=== PATIENT | female | born 1995 | race American Indian/Alaskan Native ===

== ENCOUNTER 2017-05-05 16:02 | Outpatient (CLI) | payer MEDICAID ==
[2017-05-05] MEDS ORDERED: LACTATED RINGERS 500 ML IV ONE (16:21)
[2017-05-05 16:40] VITALS: BP 109/61
[2017-05-05 17:13] LABS: Bacteria,Urine 1+ /HPF (Negative); Bilirubin,Urine NEG (Negative); Blood,Urine SM (Negative); Ketones,Urine NEG (Negative); Leukocyte Esterase,Urine NEG (Negative); Nitrite,Urine NEG (Negative); Protein,Urine <15 mg/dL mg/dL (Negative); Urobilinogen,Urine < 2.0 mg/dL (<2.0)
[2017-05-05] MEDS ORDERED: ROCEPHIN/NS 1 GM/50 ML 1 GM/50 ML BAG IV ONE (17:47)
[2017-05-05] MEDS ORDERED: cefTRIAXone 1 GM in NACL 0.9% 20 ML IV ONE (18:00)
== END 2017-05-05 18:45 | disposition home or self-care (01) ==
LOC: TRG 16:02
PROVIDERS: ATTEND Obstetrics & Gynecology
DX: O47.03 False labor before 37 completed weeks of gestation, third trimester (principal); Z3A.28 28 weeks gestation of pregnancy
CPT/HCPCS: 59025; 81001; 87086; 96360; 96365; J0696; J7120

== ENCOUNTER 2017-07-08 13:31 | Inpatient (IN) | payer MEDICAID ==
[2017-07-08] MEDS ORDERED: NUBAIN IV PRN (18:03)
[2017-07-08] MEDS ORDERED: XYLOCAINE 2% INFILTRATI ONE (18:03)
[2017-07-08] MEDS ORDERED: MINERAL OIL PO PRN (18:03)
[2017-07-08] MEDS ORDERED: BRETHINE SUB-Q PRN (18:03)
[2017-07-08] MEDS ORDERED: BRETHINE IVP PRN (18:03)
[2017-07-08] MEDS ORDERED: ePHEDrine SULFATE IV PRN (18:03)
[2017-07-08] MEDS ORDERED: SUBLIMAZE IV PRN (18:03)
[2017-07-08] MEDS ORDERED: STADOL IV PRN (18:03)
[2017-07-08 18:50] LABS: Hematocrit 36.2 % (30.3-42.9); Hemoglobin 12.2 gm/dl (10.1-14.3); Mean Corpuscular HGB Conc 34 % (30-34); Mean Corpuscular Hemoglobin 30 pg (28-32); Mean Corpuscular Volume 90 fl (79-97); Platelet Count 204 K/mm3 (140-440); Red Blood Count 4.01 M/mm3 (3.65-5.03); Red Cell Distribution Width 14.4 % (13.2-15.2)
[2017-07-08] MEDS ORDERED: LACTATED RINGERS 1,000 ML IV SCH (19:00)
[2017-07-08] MEDS ORDERED: PITOCin/NS 30 UNIT/500ML 30 UNITS/500 ML BAG IV SCH ×2 (19:00)
[2017-07-08] MEDS ORDERED: PITOCin/NS 20 UNIT/1000ML DRIP 20 UNITS/1,000 ML BAG IV SCH (19:00)
[2017-07-09] MEDS ORDERED: NARCAN 2 MG/2 ML IV PRN (02:58)
[2017-07-09] MEDS ORDERED: ePHEDrine SULFATE IV PRN (02:58)
[2017-07-09] MEDS ORDERED: fentaNYL-BUPIV 2 MCG/ML-0.125% 200 MCG/100 ML BAG EPIDURAL SCH (03:00)
--- NOTE | 2017-07-09 03:24 | Anesthesia Consultation ---
Anesthesia Consult and Med Hx Date of service: 07/09/17 - Airway Anesthetic Teeth Evaluation: Good ROM Head & Neck: Adequate Mental/Hyoid Distance: Adequate Mallampati Class: Class I Intubation Access Assessment: Good - Pulmonary Exam CTA: Yes - Cardiac Exam Cardiac Exam: RRR - Pre-Operative Health Status ASA Pre-Surgery Classification: ASA1 Proposed Anesthetic Plan: Epidural - Pulmonary Hx Asthma: No COPD: No Hx Pneumonia: No - Cardiovascular System Hx Hypertension: No - Central Nervous System Hx Seizures: No Hx Psychiatric Problems: No - Endocrine Hx Renal Disease: No Hx End Stage Renal Disease: No Hx Hypothyroidism: No Hx Hyperthyroidism: No - Hematic Hx Anemia: No Hx Sickle Cell Disease: No - Other Systems Hx Alcohol Use: No
--- NOTE | 2017-07-09 05:58 | History and Physical Report ---
History of Present Illness Date of examination: 07/09/17 Date of admission: 07/08/17 21:05 Chief complaint: 21 uo LMP EDC 07/28/17 @ 37.2, presented to triage with reported SROM this afternoon. Clear fluid, denies vaginal bleeding or decreased FM. First trimester entry into care at 9 weeks. course complicated by trichomonas with treatment and negative TIERNEY 12/28/17. 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 Experienced vaginal bleeding with inflammed cervix and treated with flagyl, azithromycin, and rocephin. U/S @ 36 weeks for S<D EFW 6-4oz, She is GBS negative. 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 Social history: no significant social history - Obstetrical History Expected Date of Delivery: 07/28/17 Actual Gestation: 37 Week(s) 2 Day(s) : 2 Para: 0 Number of Living Children: 0 Medications and Allergies Allergies Allergy/AdvReac Type Severity Reaction Status Date / Time No Known Allergies Allergy Verified 11/02/14 10:10 Home Medications Medication Instructions Recorded Confirmed Last Taken Type No Known Home Medications [No 05/05/17 05/05/17 Unknown History Reported Home Medications] Active Meds: Active Medications Butorphanol Tartrate (Stadol) 2 mg IV Q2H PRN PRN Reason: Pain , Severe (7-10) Last Admin: 07/09/17 01:55 Dose: 2 mg Ephedrine Sulfate (Ephedrine Sulfate) 10 mg IV Q2M PRN PRN Reason: Hypotension Fentanyl (Sublimaze) 100 mcg IV Q2H PRN PRN Reason: Labor Pain Last Admin: 07/08/17 23:41 Dose: 100 mcg Lactated Ringer's (Lactated Ringers) 1,000 mls @ 125 mls/hr IV DIRECT SILVA Last Admin: 07/08/17 23:41 Dose: 125 mls/hr Oxytocin/Sodium Chloride (Pitocin/Ns 20 Unit/1000ml Drip) 20 units in 1,000 mls @ 125 mls/hr IV DIRECT SILVA Oxytocin/Sodium Chloride (Pitocin/Ns 30 Unit/500ml) 30 units in 500 mls @ 1 mls /hr IV TITR SILVA; 1 MILLIUNITS/MIN PRN Reason: Protocol Oxytocin/Sodium Chloride (Pitocin/Ns 30 Unit/500ml) 30 units in 500 mls @ 4 mls /hr IV TITR SILVA PRN Reason: Protocol Last Admin: 07/08/17 23:51 Dose: 4 ml/hr, 4 mls/hr Fentanyl/Bupivacaine/Sodium Chlor (Fentanyl-Bupiv 2 Mcg/Ml-0.125%) 200 mcg in 100 mls @ 12 mls/hr EPIDURAL TITR SILVA PRN Reason: Protocol Last Admin: 07/09/17 03:54 Dose: 12 mls/hr Mineral Oil (Mineral Oil) 30 ml PO QHS PRN PRN Reason: Constipation Nalbuphine HCl (Nubain) 10 mg IV Q2H PRN PRN Reason: Pain, Moderate (4-6) Naloxone HCl (Narcan 2 Mg/2 Ml) 0.2 mg IV Q5M PRN PRN Reason: Respiratory sedation Terbutaline Sulfate (Brethine) 0.25 mg SUB-Q ONCE PRN PRN Reason: Hyperstimulation/Hypertonicity Terbutaline Sulfate (Brethine) 0.25 mg IVP ONCE PRN PRN Reason: Hyperstimulation/Hypertonicity Review of Systems All systems: negative - Vital Signs Vital signs: Vital Signs Pulse Pulse Ox 87 100 07/08/17 14:32 07/08/17 14:32 Temp Pulse Resp BP Pulse Ox 97.9 F 71 18 127/82 96 07/08/17 22:15 07/09/17 05:48 07/08/17 23:41 07/09/17 05:28 07/09/17 05:48 - Physical Exam Breasts: Positive: deferred - Obstetrical FHR: category 1 Uterine Contraction Monitor Mode: External Cervical Dilatation: 10 Cervical Effacement Percentage: 100 Uterine Contraction Pattern: Regular Uterine Tone Measurement Phase: Resting Uterine Contraction Intensity: Moderate Results Result Diagrams: 07/08/17 18:25 All other labs normal. Assessment and Plan A: IUP at term Second Stage Labor P: Active nancy't Anticipate
--- NOTE | 2017-07-09 06:02 | Procedure Note ---
OB Delivery Note - Delivery Date of Delivery: 07/09/17 (6-2oz male) Surgeon: VERONICA ACUNA Estimated blood loss: 100cc - Vaginal Intrapartum events: none, PROM->1hr before delivery Delivery induction: oxytocin Delivery monitor: external FHT, external uterine Route of delivery: Delivery placenta: spontaneous Delivery cord: 3 umbilical vessels Episiotomy: none Delivery laceration: none Anesthesia: epidural - A at 1 minute: 8 at 5 minutes: 9 Infant Gender: Male (placed skin to skin. spont placenta. scant lochia, Pitocin infusing. No lacerations.)
[2017-07-09] MEDS ORDERED: MILK OF MAGNESIA PO PRN (09:51)
[2017-07-09] MEDS ORDERED: BENADRYL PO PRN (09:51)
[2017-07-09] MEDS ORDERED: PHENERGAN PO PRN (09:51)
[2017-07-09] MEDS ORDERED: SODIUM CHLORIDE FLUSH SYRINGE 10 ML IV SCH (09:51)
[2017-07-09] MEDS ORDERED: PHENERGAN PR PRN (09:51)
[2017-07-09] MEDS ORDERED: TYLENOL PO PRN (09:51)
[2017-07-09] MEDS ORDERED: TUCKS PAD TP PRN (09:51)
[2017-07-09] MEDS ORDERED: ZOFRAN IV PRN (09:51)
[2017-07-09] MEDS ORDERED: DULCOLAX PR PRN (09:51)
[2017-07-09] MEDS: NORCO 5/325 PO PRN ×2 (09:55→16:45)
[2017-07-09] MEDS ORDERED: LANSINOH TP PRN (10:16)
[2017-07-09] MEDS: PRENATAL VITAMIN PO SCH (16:45)
[2017-07-09] MEDS: COLACE PO SCH ×2 (16:45→23:49)
[2017-07-09] MEDS: MOTRIN PO SCH ×2 (18:52→23:49)
[2017-07-09 18:55] LABS: Hematocrit 35.7 % (30.3-42.9); Hemoglobin 11.9 gm/dl (10.1-14.3)
[2017-07-10] MEDS: MOTRIN PO SCH ×2 (06:28→18:55)
[2017-07-10] MEDS ORDERED: BOOSTRIX IM ONE (06:39)
[2017-07-10] MEDS ORDERED: M-M-R II VACCINE SUB-Q ONE (06:39)
--- NOTE | 2017-07-10 12:02 | Progress Note ---
Assessment and Plan PPD 1 s/p . Patient doing well. Will plan for discharge on tomorrow as infant needs to stay for phototherapy. Subjective - Subjective Date of service: 07/10/17 Principal diagnosis: Term delivered Patient reports: appetite normal, voiding normally, pain well controlled, ambulating normally [place]: doing well (with bili lights) Objective - Vital Signs Latest vital signs: Vital Signs Temp Pulse Resp BP BP Pulse Ox 07/10/17 07:40 97.4 F L 69 20 124/84 98 07/10/17 01:17 98.4 F 62 18 126/71 07/09/17 18:00 98.1 F 74 18 113/84 99 07/09/17 13:00 98.4 F 80 18 107/72 98 Intake and Output 07/09/17 07/10/17 07/10/17 22:59 06:59 14:59 Intake Total 480 720 Balance 480 720 Intake: Oral 480 Intake, Free Water 720 Other: Total, Intake Amount 480 # Voids Void 2 - Exam Cardiovascular: Present: Regular rate, Normal S1, Normal S2 Lungs: Present: Clear to auscultation, Normal air movement Abdomen: Present: normal appearance, soft, normal bowel sounds Vulva: both: normal Uterus: Present: normal, firm, fundal height below umbilicus Extremities: Present: normal Deep Tendon Reflex Grade: Normal +2
--- NOTE | 2017-07-10 12:03 | Discharge Summary ---
Providers - Providers Date of Admission: 07/08/17 21:05 Date of discharge: 07/11/17 Attending physician: AFUA BRAR Primary care physician: DIMA BURNS MD Hospitalization Reason for admission: active labor Delivery: Episiotomy: none Discharge diagnosis: IUP at term delivered baby: male Hospital course: Unremarkable Condition at discharge: Good Disposition: DC-01 TO HOME OR SELFCARE Plan - Discharge Medications Prescriptions: HYDROcodone/ACETAMINOPHEN [[place] 5-325 Tablet] 1 each PO Q6H PRN #20 tablet PRN Reason: Pain Ibuprofen [Motrin] 800 mg PO Q8HR PRN #30 tablet PRN Reason: Pain - Provider Discharge Summary Activity: routine, no sex for 6 weeks, no heavy lifting 4 weeks, no strenuous exercise Diet: routine Instructions: routine Additional instructions: [] Smoking cessation referral if applicable(refer to patient education folder for contact #) [] Refer to [facility]'s [facility] Booklet Call your doctor immediately for: * Fever > 100.5 * Heavy vaginal bleeding ( >1 pad per hour) * Severe persistent headache * Shortness of breath * Reddened, hot, painful area to leg or breast * Drainage or odor from incision. * Keep incision clean and dry at all times and follow doctor's instructions regarding bathing/showering - Follow up plan Follow up: DIMA BURNS MD [Primary Care Provider] - 6 Weeks
[2017-07-10] MEDS: COLACE PO SCH (18:56)
[2017-07-11] MEDS: MOTRIN PO SCH ×3 (00:27→13:43)
[2017-07-11] MEDS ORDERED: BOOSTRIX IM ONE (10:00)
[2017-07-11] MEDS: COLACE PO SCH (10:18)
[2017-07-11] MEDS: PRENATAL VITAMIN PO SCH (10:18)
[2017-07-11 17:59] VITALS: BP 141/87
== END 2017-07-11 19:00 | disposition home or self-care (01) | DRG 774 ==
LOC: TRG 13:31 → LD 21:05 → OB 07-09 09:36
PROVIDERS: ADMIT Obstetrics & Gynecology; ATTEND Obstetrics & Gynecology
PROC: 3E0234Z Introduction of Serum, Toxoid and Vaccine into Muscle, Percutaneous Approach (ICD-10-PCS; principal; 2017-07-09)
PROC: 10E0XZZ Delivery of Products of Conception, External Approach (ICD-10-PCS; 2017-07-09)
PROC: 3E033VJ Introduction of Other Hormone into Peripheral Vein, Percutaneous Approach (ICD-10-PCS; 2017-07-09)
PROC: 3E0R3BZ Introduction of Anesthetic Agent into Spinal Canal, Percutaneous Approach (ICD-10-PCS; 2017-07-09)
PROC: 00HU33Z Insertion of Infusion Device into Spinal Canal, Percutaneous Approach (ICD-10-PCS; 2017-07-09)
DX: O42.02 Full-term premature rupture of membranes, onset of labor within 24 hours of rupture (principal); O98.32 Other infections with a predominantly sexual mode of transmission complicating childbirth; Z3A.37 37 weeks gestation of pregnancy; Z37.0 Single live birth; Z23 Encounter for immunization; A59.9 Trichomoniasis, unspecified; O98.52 Other viral diseases complicating childbirth; B00.9 Herpesviral infection, unspecified
CPT/HCPCS: 36415; 85014; 85018; 85027; 86592; 86850; 86900; 86901; 90471; 90715; 99211; G0463; J0595; J2300; J2590; J3010; J7120

== ENCOUNTER 2018-06-26 12:45 | Observation (INO) | payer MEDICAID, OTHER ==
--- NOTE | 2018-06-26 13:47 | Emergency Department Report ---
<LEISA COHN - Last Filed: 06/26/18 19:07> ED Female HPI - General Chief complaint: Vaginal Bleeding Stated complaint: (L) SIDE PAIN Source: patient Mode of arrival: Ambulatory Limitations: No Limitations - History of Present Illness Initial comments: Sustained 22-year-old -[place] female who presents with left lower quadrant pain radiating to left flank and vaginal bleeding for 1 month. Patient reports bleeding started 05/29/2016. Initially started with heavy bleeding and passage of clots which is now decreased to spotting. She also complains of vaginal discharge with odor. A1. She denies fever, back pain, nausea or vomiting, chest pain, shortness of breath. MD Complaint: vaginal bleeding, vaginal discharge, pelvic pain Onset/Timin -: month(s) Location: suprapubic Radiation: non-radiating Severity: severe Severity scale (0 -10): 10 Quality: sharp Consistency: constant Improves with: none Worsens with: none Are you Now?: No Last Menstrual Period: 06/14/18 EDC: 03/21/19 Associated Symptoms: vaginal discharge, vaginal bleeding, abdominal pain. denies: nausea/vomiting, fever/chills, headaches, loss of appetite, dysuria, hematuria, rash, seizure, shortness of breath, syncope, weakness - Related Data Sexually active: Yes : 2 Para: 1 A: 1 (miscarriage) Previous Rx's Medication Instructions Recorded Last Taken Type HYDROcodone/ACETAMINOPHEN [[place] 1 each PO Q6H PRN #20 tablet 07/09/17 Unknown Rx 5-325 Tablet] Ibuprofen [Motrin] 800 mg PO Q8HR PRN #30 tablet 07/09/17 Unknown Rx Allergies Allergy/AdvReac Type Severity Reaction Status Date / Time No Known Allergies Allergy Verified 11/02/14 10:10 ED Review of Systems Constitutional: denies: chills, fever Respiratory: denies: cough, shortness of breath, wheezing Cardiovascular: denies: chest pain, palpitations Gastrointestinal: abdominal pain, nausea. denies: vomiting, diarrhea Genitourinary: abnormal menses. denies: urgency, dysuria, discharge Musculoskeletal: denies: back pain, joint swelling, arthralgia Neurological: denies: headache, weakness, paresthesias Psychiatric: denies: anxiety, depression ED Past Medical Hx - Past Medical History Hx Hypertension: No Hx Congestive Heart Failure: No Hx Diabetes: No Hx Deep Vein Thrombosis: No Hx Renal Disease: No Hx Sickle Cell Disease: No Hx Seizures: No Hx Asthma: No Hx COPD: No Hx HIV: No - Social History Smoking Status: Never Smoker Substance Use Type: None - Medications Home Medications: Home Medications Medication Instructions Recorded Confirmed Last Taken Type HYDROcodone/ACETAMINOPHEN [[place] 1 each PO Q6H PRN #20 tablet 07/09/17 Unknown Rx 5-325 Tablet] Ibuprofen [Motrin] 800 mg PO Q8HR PRN #30 tablet 07/09/17 Unknown Rx ED Physical Exam - General Limitations: No Limitations General appearance: alert, in no apparent distress - Respiratory Respiratory exam: Present: normal lung sounds bilaterally. Absent: respiratory distress - Cardiovascular Cardiovascular Exam: Present: regular rate, normal rhythm. Absent: systolic murmur, diastolic murmur, rubs, gallop - GI/Abdominal GI/Abdominal exam: Present: soft, normal bowel sounds. Absent: distended, tenderness, guarding, rebound, rigid, organomegaly, mass - External exam: Present: normal external exam. Absent: erythema, swelling, lesions, lacerations, ecchymosis, bleeding Speculum exam: Present: erythema, vaginal discharge, vaginal bleeding. Absent: cervical discharge, foreign body, tissue, laceration Bi-manual exam: Present: cervical motion tendernes, adnexal tenderness (left), uterine tenderness. Absent: adnexal mass - Back Exam Back exam: Absent: CVA tenderness (R), CVA tenderness (L) - Neurological Exam Neurological exam: Present: alert, oriented X3 - Psychiatric Psychiatric exam: Present: normal affect, normal mood - Skin Skin exam: Present: warm, dry, intact, normal color. Absent: rash ED Medical Decision Making - Lab Data Result diagrams: 06/26/18 14:25 - Medical Decision Making Patient was examined by me. Vitals are normal and patient is in no acute distress. Obtained the labs. Urine test positive. Obtained hCG and OB ultrasound. IV site. Given normal saline 1 L bolus, morphine 4 mg IV 2, Zofran 4 mg IV. Ultrasound pending. Rule out ectopic . Chart sign to [facility] ED Disposition Clinical Impression: Pelvic pain, Spontaneous miscarriage Disposition: OP ADMIT IP TO THIS HOSP Condition: Stable Referrals: ANNALISA WATKINS [Primary Care Provider] - 3-5 Days <INA OKEEFE - Last Filed: 06/26/18 19:57> ED Review of Systems ROS: Stated complaint: (L) SIDE PAIN Other details as noted in HPI ED Course Vital Signs 06/26/18 06/26/18 12:54 19:49 Temperature 98.3 F Pulse Rate 98 H Respiratory 18 15 Rate Blood Pressure 128/75 O2 Sat by Pulse 98 Oximetry ED Medical Decision Making - Lab Data Result diagrams: 06/26/18 14:25 - Medical Decision Making Patient was signed out to me by Leisa Cohn for a pending US report. Patient was consulted with Dr. Bullock and agree to the ED plan of care and admission for ecoptic rule out. At time of admission, the patient does not seem toxic or ill in appearance. No acute signs of distress noted. Patient agrees to admission treatment plan of care. No further questions noted by the patient. Critical care attestation.: If time is entered above; I have spent that time in minutes in the direct care of this critically ill patient, excluding procedure time. ED Disposition Is pt being admited?: Yes
[2018-06-26 14:41] LABS: Hematocrit 33.3 % (30.3-42.9); Mean Corpuscular HGB Conc 33 % (30-34); Mean Corpuscular Volume 87 fl (79-97); Platelet Count 387 K/mm3 (140-440); Red Blood Count 3.82 M/mm3 (3.65-5.03); Red Cell Distribution Width 13.7 % (13.2-15.2)
[2018-06-26] MEDS ORDERED: MORPHINE IV ONE ×2 (14:55→17:46)
[2018-06-26] MEDS ORDERED: ZOFRAN IV ONE (14:55)
--- NOTE | 2018-06-26 19:01 | Ultrasound Report ---
FINAL REPORT EXAM: US OB TRANSVAGINAL HISTORY: confirmed , vaginal bleeding, r/o ectopic TECHNIQUE: Ultrasound obstetrical transvaginal PRIORS: None. FINDINGS: Uterus measures 9.1 x 4.5 x 6.4 centimeters. No evidence for endometrial thickening 0.25 centimeters No gestational sac or structures identified within the uterus Right ovary is 5.3 x 3.3 x 4.1 centimeters. No abnormal right ovarian mass identified Left ovary is 4.6 x 1.9 x 2.6 centimeters. In the region of the left adnexae there is echogenic massl lexi focus measuring approximately 3.5 by 3.0 x 5.0 centimeters. No tubal ring or sac-like structures are identified. No free fluid identified IMPRESSION: No intrauterine gestation identified Solid-appearing focus noted at the left adnexa. Nonspecific appearance. Ectopic cannot be e xcluded. Could reflect pedunculated fibroid or other mass. Suggest continued followup in correlation with beta HCGs
--- NOTE | 2018-06-26 19:05 | Ultrasound Report ---
FINAL REPORT EXAM: US OB <= 14 WEEKS FETUS HISTORY: confirmed , vaginal bleeding, r/o ectopic TECHNIQUE: Ultrasound obstetrical transabdominal PRIORS: None. FINDINGS: Uterus measures 9.1 x 4.5 x 6.4 centimeters. No evidence for endometrial thickening 0.25 centimeters No gestational sac or structures identified within the uterus Right ovary is 5.3 x 3.3 x 4.1 centimeters. No abnormal right ovarian mass identified Left ovary is 4.6 x 1.9 x 2.6 centimeters. In the region of the left adnexae there is echogenic massl lexi focus measuring approximately 3.5 by 3.0 x 5.0 centimeters. No tubal ring or sac-like structures are identified. No free fluid identified IMPRESSION: No intrauterine gestation identified Solid-appearing focus noted at the left adnexa. Nonspecific appearance. Ectopic cannot be e xcluded. Could reflect pedunculated fibroid or other mass.
[2018-06-26 20:26] LABS: Alanine Aminotransferase 7 units/L (7-56); BUN/Creatinine Ratio 7; Blood Urea Nitrogen 5 mg/dL (7-17); Calcium 8.9 mg/dL (8.4-10.2); Hemolysis Index 2
[2018-06-26 20:31] LABS: INR 1.05 (0.87-1.13); Partial Thromboplastin Time 23.9 Sec. (24.2-36.6)
[2018-06-26] MEDS ORDERED: ZOFRAN IV PRN (23:05)
[2018-06-26] MEDS ORDERED: TYLENOL PO PRN (23:05)
[2018-06-26] MEDS ORDERED: NORCO 5/325 PO PRN (23:05)
--- NOTE | 2018-06-26 23:13 | History and Physical Report ---
History of Present Illness Date of examination: 06/27/18 Date of admission: 06/26/18 19:46 Chief complaint: vaginal bleeding/ abdominal pain. History of present illness: Pt presents to ER c/o worsening left lower quad pain. She states she had spotting that started at the end of April. It is unclear if this was her expected period or not as pt is poor historian. This spotting progressed to passing clots and heavier bleeding 06/03/18 for about a week to currently having spotting. Pt states she was having constipation and pain associated with it but states today pain got worse and this is what brought her to the ER.States she as not aware she was . Pt states she was going to [facility] and delivered her baby in 07/2017 but has not been seen in the office since Dec 2017. 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 Sono tonight shows a 3cm x5cm nonspecific left adnexal mass that included ddx of ectopic and pedunculated fibroid or "other mass." I have d/w that she also could be in the resolution phase of either an ectopic or SAB given the uterine cavity showed no thickness and she had heavy bleeding. However, I also d/w that she could have an eary normal given her quant is <2000 and a GS would not be seen. I d/w the following treatment options 1)observation with following quants 2)dx laproscopy with removal of mass 3)MTX and close observation. Pt desires MTX. I stressed that it has not been clearly proven to be an ectopic and giving the medication could disrupt a normal early . Pt states she would like the injection at this time if Ectopic is still a possibility. Risk, benefits, and alternatives were d/w pt and questions were addressed and answered. 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 Family/Genetic History: none Social history: no significant social history - Obstetrical History : 3 Para: 1 Spontaneous Abortions: 1 Number of Living Children: 1 Medications and Allergies Allergies Allergy/AdvReac Type Severity Reaction Status Date / Time No Known Allergies Allergy Verified 11/02/14 10:10 Home Medications Medication Instructions Recorded Confirmed Last Taken Type No Known Home Medications [No 06/26/18 06/26/18 Unknown History Reported Home Medications] Active Meds: Active Medications Acetaminophen (Tylenol) 650 mg PO Q4H PRN PRN Reason: Pain MILD(1-3)/Fever >100.5/[place]ULL[place] Acetaminophen/Hydrocodone Bitart ([place] 5/325) 2 each PO Q6H PRN PRN Reason: Pain, Moderate (4-6) Methotrexate (Methotrexate) 92 mg 50 mg/m2 (92 mg) IM ONCE ONE Stop: 06/26/18 23:09 Ondansetron HCl (Zofran) 4 mg IV Q8H PRN PRN Reason: Nausea And Vomiting Sodium Chloride (Sodium Chloride Flush Syringe 10 Ml) 10 ml IV BID [facility] Review of Systems All systems: negative - Vital Signs Vital signs: Vital Signs Temp Pulse Resp BP Pulse Ox 98.3 F 98 H 18 128/75 98 06/26/18 12:54 06/26/18 12:54 06/26/18 12:54 06/26/18 12:54 06/26/18 12:54 Temp Pulse Resp BP Pulse Ox 98.1 F 67 16 105/61 100 06/26/18 21:20 06/26/18 21:20 06/26/18 21:20 06/26/18 21:20 06/26/18 21:20 - Physical Exam Cardiovascular: Normal S1, Normal S2 Lungs: Positive: Clear to auscultation Abdomen: Positive: normal appearance, soft. Negative: distention, tenderness, guarding Genitourinary (Female): Positive: other (deferred as pelvic was done by ER provider and pt declines at this time) Extremities: Positive: normal. Negative: tenderness, edema Deep Tendon Reflex Grade: Normal +2 Results Result Diagrams: 06/26/18 14:25 06/26/18 20:01 Abnormal lab results 06/26/18 06/26/18 06/26/18 Range/Units 15:02 20:01 20:01 APTT 23.9 L (24.2-36.6) Sec. BUN 5 L (7-17) mg/dL HCG, Quant 1780 H (0-4) mIU/mL All other labs normal. Assessment and Plan - Patient Problems (1) Adnexal mass Current Visit: Yes Status: Acute Plan to address problem: -fibroid vs ectopic -pt desires tx for ectopic -MTX orders given -all risk, benefits,and alternatives were d/w pt and questions were addressed and answered (2) Positive blood test Current Visit: Yes Status: Acute Plan to address problem: -fibroid vs ectopic -pt desires tx for ectopic -MTX orders given -all risk, benefits,and alternatives were d/w pt and questions were addressed a nd answered (3) Pelvic pain Current Visit: Yes Status: Acute Plan to address problem: -fibroid vs ectopic -pt desires tx for ectopic -MTX orders given -all risk, benefits,and alternatives were d/w pt and questions were addressed and answered
[2018-06-27 05:55] LABS: Basophils % (Auto) 0.2 % (0.0-1.8); Eosinophils # (Auto) 0.2 K/mm3 (0.0-0.4); Eosinophils % (Auto) 2.8 % (0.0-4.3); Hematocrit 32.1 % (30.3-42.9); Hemoglobin 10.7 gm/dl (10.1-14.3); Lymphocytes # (Auto) 2.1 K/mm3 (1.2-5.4); Lymphocytes % (Auto) 29.8 % (13.4-35.0); Mean Corpuscular HGB Conc 33 % (30-34); Mean Corpuscular Volume 87 fl (79-97); Monocytes # (Auto) 0.6 K/mm3 (0.0-0.8); Platelet Count 392 K/mm3 (140-440); Red Cell Distribution Width 13.8 % (13.2-15.2)
--- NOTE | 2018-06-27 09:15 | Discharge Summary ---
Providers - Providers Date of Admission: 06/26/18 19:46 Date of discharge: 06/27/18 Attending physician: SANDY GALARZA 06/26/18 20:02 Consult to Physician [CONS] Stat Comment: Consulting Provider: SANDY GALARZA Physician Instructions: Reason For Exam: pelvic pain r/o ectopic Primary care physician: ANNALISA WATKINS Hospitalization Reason for admission: ectopic Condition: Good Hospital course: Please see dictated H&P for details. Patient was admitted with a diagnosis of ectopic . Options were explained and patient chose to undergo treatment with methotrexate. Methotrexate therapy was given without any complications. Patient discharged with follow-up in 3 days. Patient desires to return to [facility] for follow-up Disposition: NE TO HOME OR SELFCARE Time spent for discharge: 20 min - Discharge Diagnoses (1) Ectopic Status: Acute Qualifiers: Location of ectopic : unspecified location Intrauterine status: without intrauterine Qualified Code(s): O00.90 - Unspecified ectopic without intrauterine Core Measure Documentation - Palliative Care Palliative Care/ Comfort Measures: Not Applicable - Core Measures Any of the following diagnoses?: none Exam - Constitutional Vitals: Temp Pulse Resp BP Pulse Ox 98.0 F 77 18 95/49 100 06/27/18 08:00 06/27/18 08:00 06/27/18 08:00 06/27/18 08:00 06/27/18 08:00 Plan Activity: no restrictions Additional Instructions: Patient struck to call for severe pain nausea vomiting and heavy bleeding. F/u with [facility] per patient's preference. Our office information was also given to the patient. Stressed to the patient wanted to follow up the results of ruptured fallopian tube and the rest of haven't significant internal bleeding. Patient understands and desires discharge Follow up with: ANNALISA WATKINS [Primary Care Provider] - 3-5 Days Prescriptions: RX: Ibuprofen [Motrin 800 MG tab] 800 mg PO Q6H PRN #30 tablet PRN Reason: Pain Acetaminophen/Codeine [Tylenol #3] 1 tab PO Q4HR PRN #10 tablet PRN Reason: Pain
[2018-06-27] MEDS ORDERED: SODIUM CHLORIDE FLUSH SYRINGE 10 ML IV SCH (10:00)
[2018-06-27 11:58] VITALS: BP 90/51
== END 2018-06-27 13:30 | disposition home or self-care (01) ==
LOC: ED 12:45 → OB 19:46
PROVIDERS: ADMIT Obstetrics & Gynecology; ATTEND Obstetrics & Gynecology
DX: O26.899 Other specified pregnancy related conditions, unspecified trimester (principal); O00.90 Unspecified ectopic pregnancy without intrauterine pregnancy; R10.2 Pelvic and perineal pain; Z3A.00 Weeks of gestation of pregnancy not specified
CPT/HCPCS: 36415; 76801; 76817; 80053; 84702; 84703; 85025; 85027; 85610; 85730; 86850; 86900; 86901; 87086; 87210; 87591; 96372; 96374; 96375; 96376; 99284; G0378; J2270; J2405; J9260

== ENCOUNTER 2019-04-19 20:27 | Emergency (ER) | payer SELFPAY ==
[2019-04-19] MEDS ORDERED: ONDANSETRON 4 MG ODT TAB ONE (21:16)
[2019-04-19 22:19] LABS: Basophils # (Auto) 0.1 K/mm3 (0.0-0.1); Hematocrit 33.9 % (30.3-42.9); Hemoglobin 11.5 gm/dl (10.1-14.3); Lymphocytes # (Auto) 1.2 K/mm3 (1.2-5.4); Lymphocytes % (Auto) 9.9 % (13.4-35.0); Mean Corpuscular HGB Conc 34 % (30-34); Mean Corpuscular Volume 80 fl (79-97); Monocytes # (Auto) 1.8 K/mm3 (0.0-0.8); Monocytes % (Auto) 15.5 % (0.0-7.3); Platelet Count 305 K/mm3 (140-440); Red Blood Count 4.22 M/mm3 (3.65-5.03); Red Cell Distribution Width 16.7 % (13.2-15.2)
[2019-04-19 22:29] LABS: Alanine Aminotransferase 13 units/L (7-56); Albumin 4.4 g/dL (3.9-5); BUN/Creatinine Ratio 9; Blood Urea Nitrogen 7 mg/dL (7-17); Calcium 9.2 mg/dL (8.4-10.2); Hemolysis Index 0
[2019-04-19 22:37] LABS: Bilirubin,Urine NEG (Negative); Blood,Urine MOD (Negative); Color,Urine Yellow (Yellow); Mucus,Urine FEW /HPF
[2019-04-19] MEDS ORDERED: ACETAMINOPHEN 500 MG TAB PO ONE (23:36)
[2019-04-19] MEDS ORDERED: SODIUM CHLORIDE 0.9% 1000 ML IV SOLN IV ONE (23:36)
[2019-04-19] MEDS ORDERED: cefTRIAXone/NS 1 GM/50 ML 1 GM/50 ML BAG IV ONE (23:37)
[2019-04-19] MEDS ORDERED: POTASSIUM CHLORIDE ER 20 MEQ TAB PO ONE (23:40)
--- NOTE | 2019-04-19 23:42 | Emergency Department Report ---
ED Abdominal Pain HPI - General Chief Complaint: Abdominal Pain Stated Complaint: NAUSEA/HOT FLASHES/CONSTIPATION/COLD SWEATS Time Seen by Provider: 04/19/19 23:20 Source: patient Mode of arrival: Ambulatory Limitations: No Limitations - History of Present Illness Initial Comments: 23-year-old female presents to ED with 5 day history of nausea, vomiting, abdominal pain. Patient reports pain is intermittent, located in left lower quadrant. Patient also reports associated constipation and lower back pain. She denies any dysuria, hematuria, urinary frequency, vaginal discharge. MD Complaint: abdominal pain -: days(s) (5) Location: LLQ Radiation: none Migration to: no migration Severity: moderate Quality: aching Consistency: intermittent Improves With: nothing Worsens With: nothing Associated Symptoms: nausea, vomiting, fever, constipation. denies: diarrhea, dysuria, hematuria - Related Data Previous Rx's Medication Instructions Recorded Last Taken Type Acetaminophen/Codeine [Tylenol #3] 1 tab PO Q4HR PRN #10 tablet 06/27/18 Unknown Rx Ibuprofen [Motrin 800 MG tab] 800 mg PO Q6H PRN #30 tablet 06/27/18 Unknown Rx Ciprofloxacin HCl [Ciprofloxacin 500 mg PO Q12HR 10 Days #20 tab 04/20/19 Unknown Rx TAB] Docusate Sodium [Colace] 100 mg PO BID #20 capsule 04/20/19 Unknown Rx Naproxen [Naprosyn] 500 mg PO BID #20 tablet 04/20/19 Unknown Rx Ondansetron [Zofran Odt] 4 mg PO Q8HR PRN #20 tab.rapdis 04/20/19 Unknown Rx traMADoL [Ultram] 50 mg PO Q6HR PRN #7 tablet 04/20/19 Unknown Rx Allergies Allergy/AdvReac Type Severity Reaction Status Date / Time No Known Allergies Allergy Verified 11/02/14 10:10 ED Review of Systems ROS: Stated complaint: NAUSEA/HOT FLASHES/CONSTIPATION/COLD SWEATS Other details as noted in HPI Comment: All other systems reviewed and negative Constitutional: fever ENT: denies: throat pain Respiratory: denies: cough Gastrointestinal: abdominal pain, nausea, vomiting, constipation Genitourinary: denies: dysuria, frequency, hematuria, discharge Musculoskeletal: back pain. denies: myalgia ED Past Medical Hx - Past Medical History Previous Medical History?: Yes Hx Hypertension: No Hx Congestive Heart Failure: No Hx Diabetes: No Hx Deep Vein Thrombosis: No Hx Renal Disease: No Hx Sickle Cell Disease: No Hx Seizures: No Hx Asthma: No Hx COPD: No Hx HIV: No Additional medical history: Ovarian cyst, Miscarriage 2015 at 16 weeks - Surgical History Past Surgical History?: No - Social History Smoking Status: Current Every Day Smoker Substance Use Type: None - Medications Home Medications: Home Medications Medication Instructions Recorded Confirmed Last Taken Type Acetaminophen/Codeine [Tylenol #3] 1 tab PO Q4HR PRN #10 tablet 06/27/18 Unknown Rx Ibuprofen [Motrin 800 MG tab] 800 mg PO Q6H PRN #30 tablet 06/27/18 Unknown Rx Ciprofloxacin HCl [Ciprofloxacin 500 mg PO Q12HR 10 Days #20 tab 04/20/19 Unknown Rx TAB] Docusate Sodium [Colace] 100 mg PO BID #20 capsule 04/20/19 Unknown Rx Naproxen [Naprosyn] 500 mg PO BID #20 tablet 04/20/19 Unknown Rx Ondansetron [Zofran Odt] 4 mg PO Q8HR PRN #20 tab.rapdis 04/20/19 Unknown Rx traMADoL [Ultram] 50 mg PO Q6HR PRN #7 tablet 04/20/19 Unknown Rx ED Physical Exam - General Limitations: No Limitations General appearance: alert, in no apparent distress - Head Head exam: Present: atraumatic, normocephalic - Eye Eye exam: Present: normal appearance - ENT ENT exam: Present: mucous membranes moist - Neck Neck exam: Present: normal inspection - Respiratory Respiratory exam: Present: normal lung sounds bilaterally. Absent: respiratory distress - Cardiovascular Cardiovascular Exam: Present: normal rhythm, tachycardia - GI/Abdominal GI/Abdominal exam: Present: soft, tenderness (mild LLQ). Absent: distended, guarding, rebound - Extremities Exam Extremities exam: Present: normal inspection - Back Exam Back exam: Absent: CVA tenderness (R), CVA tenderness (L) - Neurological Exam Neurological exam: Present: alert, oriented X3 - Psychiatric Psychiatric exam: Present: normal affect, normal mood - Skin Skin exam: Present: warm, dry, intact, normal color ED Course Vital Signs 04/19/19 04/19/19 04/19/19 20:41 21:12 23:27 Temperature 102.6 F H 102.6 F H 101.7 F H Pulse Rate 124 H 119 H 104 H Respiratory 18 18 16 Rate Blood Pressure 114/72 114/72 Blood Pressure 117/69 [Right] O2 Sat by Pulse 98 98 98 Oximetry 04/20/19 04/20/19 04/20/19 00:00 01:05 01:39 Temperature 98.6 F Pulse Rate 83 94 H Respiratory 17 16 17 Rate Blood Pressure Blood Pressure 90/50 102/63 [Right] O2 Sat by Pulse 98 98 98 Oximetry ED Medical Decision Making - Lab Data Result diagrams: 04/19/19 21:34 04/19/19 21:34 - Radiology Data Radiology results: report reviewed, image reviewed - Medical Decision Making 23-year-old female was left-sided pyelonephritis. Patient initially presented febrile and tachycardic with mildly elevated WBCs, however lactic acid normal. She was given 30 mL per KG IV fluid bolus and Tylenol. Signs improved. She was given Rocephin for her pyelonephritis which was seen on CT abdomen and pelvis. Patient is feeling much better at this time. Will discharge home with antibiotics and pain medication. No emesis here in ED. Outpatient follow-up advised. Return precautions given. - Differential Diagnosis UTI, diverticulitis, bowel obstruction Critical care attestation.: If time is entered above; I have spent that time in minutes in the direct care of this critically ill patient, excluding procedure time. ED Disposition Clinical Impression: Pyelonephritis Disposition: DC-01 TO HOME OR SELFCARE Is pt being admited?: No Condition: Stable Instructions: Abdominal Pain (ED) Prescriptions: Ciprofloxacin HCl [Ciprofloxacin TAB] 500 mg PO Q12HR 10 Days #20 tab Docusate Sodium [Colace] 100 mg PO BID #20 capsule Naproxen [Naprosyn] 500 mg PO BID #20 tablet traMADoL [Ultram] 50 mg PO Q6HR PRN #7 tablet PRN Reason: Pain Ondansetron [Zofran Odt] 4 mg PO Q8HR PRN #20 tab.rapdis PRN Reason: Vomiting
[2019-04-19] MEDS ORDERED: ONDANSETRON 4 MG/2 ML INJ ONE (23:44)
[2019-04-20] MEDS ORDERED: ONDANSETRON 4 MG/2 ML INJ IV ONE (01:00)
--- NOTE | 2019-04-20 01:20 | Cat Scan Report ---
CT abdomen pelvis w con INDICATION: LLQ pain. TECHNIQUE: All CT scans at this location are performed using the following dose modulation technique: Automated exposure control. CONTRAST: None. COMPARISON: None available. CT ABDOMEN: Evaluation the parenchymal organs demonstrates heterogeneous enhancement of the left kidn ey with areas of low density greatest medially just below the hilum. The remaining parenchymal organs are unremarkable other than a subcentimeter right renal cyst. Negative for abdominal mass, fluid or inflammation. The bowel is not dilated or thickened. CT PELVIS: Negative for mass, adenopathy or localized inflammation. A small amount of pelvic free flu id is present. IMPRESSION: 1. Left hilum nephritis. Negative for obstruction or discrete abscess. 2. Small amount of pelvic free fluid. Signer Name: Chano Blevins MD Signed: 04/20/2019 1:15 AM Workstation Name: [id number]
[2019-04-20 03:51] VITALS: BP 103/62
== END 2019-04-20 03:52 | disposition home or self-care (01) ==
LOC: ED 20:27
DX: N12 Tubulo-interstitial nephritis, not specified as acute or chronic (principal); F17.200 Nicotine dependence, unspecified, uncomplicated; Z79.1 Long term (current) use of non-steroidal anti-inflammatories (NSAID); Z79.899 Other long term (current) drug therapy
CPT/HCPCS: 36415; 74177; 80053; 81001; 82140; 83690; 84703; 85025; 96361; 96365; 96375; 99284; J0696; J2405; J7030; Q9967; Q0162